=== PATIENT | female | born 1975 | race Caucasian/White ===

== ENCOUNTER 2016-11-30 08:08 | Inpatient (IN) | payer OTHER ==
--- NOTE | 2016-11-30 10:53 | RAD ---
HISTORY: well-being, gestational age by dates of 40 weeks and 3 days COMPARISONS: None TECHNIQUE: Multiple transverse and longitudinal ultrasound images were obtained of the gravid uterus using grayscale, color Doppler, M-Mode Doppler, and spectral Doppler imaging as part of a biophysical profile without nonstress test. FINDINGS: An anatomic evaluation is not included as part of this examination. BIOPHYSICAL PROFILE: Breathing Movement: 2/2 Movement: 2/2 Tone: 2/2 Qualitative Amniotic Fluid Volume: 2/2 Total Biophysical Profile Score: 8/8 FETUS: Number: 1 Presentation: Vertex Gestational age: 40 weeks, 2 days GINA: November 28, 2016. This is concordant with age by dates. Estimated weight: 4673 g +/- 682 g heart rate: 142 bpm. An anatomic evaluation is not included as part of this examination. PLACENTA: Position: Posterior Quantitative amniotic fluid index: 20.1 cm IMPRESSION: 1. SINGLE LIVE INTRAUTERINE GESTATION IN VERTEX PRESENTATION AT 40 WEEKS AND 2 DAYS BY COMPOSITE GESTATIONAL AGE. 2. TOTAL BIOPHYSICAL PROFILE SCORE OF 8/8
[2016-11-30] MEDS ORDERED: Sodium Citrate/Citric Acid* 15 ML UDC PO ONE (13:57)
[2016-11-30] MEDS ORDERED: ceFOXitin 2 GM IVPREMIX* 2 GM/50 ML BAG IVPB ONE (13:57)
[2016-11-30] MEDS ORDERED: Lidocaine 1% MPF* 2 ML VIAL ONE (14:03)
[2016-11-30 14:54] LABS: Hematocrit 37 % (35-47); Mean Corpuscular HGB Conc 32 g/dl (31-36); Mean Corpuscular Hemoglobin 28 pg (27-31); Mean Corpuscular Volume 87 fL (80-97); Mean Platelet Volume 11 um3 (7.4-10.4); Red Blood Count 4.25 10^6/ul (4.0-5.4); Red Cell Distribution Width 14 % (10.5-15); White Blood Count 10.3 10^3/ul (3.5-10.8)
[2016-11-30] MEDS ORDERED: Morphine PF AMP (0.5MG/ML)* 5 MG/10 ML AMP ONE (17:12)
[2016-11-30] MEDS ORDERED: OXYTOCIN* 10 UNITS/ML 1 ML VIAL ONE (17:38)
[2016-11-30] MEDS ORDERED: Naloxone* 0.4 MG/ML 1 ML VIAL IV PRN (17:49)
[2016-11-30] MEDS ORDERED: Ondansetron INJ* 2 MG/ML VIAL IV PRN (17:49)
[2016-11-30] MEDS ORDERED: DiMENhydriNATE IV* 50 MG/ML VIAL IV PUSH PRN (17:49)
[2016-11-30] MEDS ORDERED: fentaNYL* 50 MCG/ML 2 ML VIAL (100 MCG VIAL) ONE (18:00)
[2016-11-30] MEDS ORDERED: Dibucaine 1% 28.35 GM TUBE PR PRN (19:11)
[2016-11-30] MEDS ORDERED: Witch Hazel PAD* JAR TOPICAL PRN (19:11)
[2016-11-30] MEDS ORDERED: Glycerin ADULT SUPP PR PRN (19:11)
[2016-11-30] MEDS: Ibuprofen TAB* 800 MG PO SCH (19:30)
[2016-11-30] MEDS: oxyCODONE/Acetamin 5/325 MG* TAB PO PRN (19:57)
[2016-12-01] MEDS: Simethicone CHEW TAB* 80 MG PO SCH ×5 (01:45→21:09)
[2016-12-01] MEDS: Docusate CAP* 100 MG PO SCH ×4 (01:45→21:09)
[2016-12-01] MEDS: Ibuprofen TAB* 800 MG PO SCH ×3 (02:20→19:35)
[2016-12-01] MEDS: oxyCODONE/Acetamin 5/325 MG* TAB PO PRN ×4 (06:33→22:45)
[2016-12-01 07:02] LABS: Hematocrit 31 % (35-47); Mean Corpuscular HGB Conc 33 g/dl (31-36); Mean Corpuscular Hemoglobin 29 pg (27-31); Mean Corpuscular Volume 88 fL (80-97); Mean Platelet Volume 11 um3 (7.4-10.4); Red Blood Count 3.46 10^6/ul (4.0-5.4); Red Cell Distribution Width 14 % (10.5-15)
[2016-12-01] MEDS ORDERED: Ferrous Gluconate TAB* 324 MG TAB PO SCH (09:00)
[2016-12-01] MEDS ORDERED: oxyCODONE/Acetamin 5/325 MG* TAB PO PRN (09:30)
[2016-12-01] MEDS: Ibuprofen TAB* 600 MG PO SCH ×3 (15:10→21:09)
--- NOTE | 2016-12-01 15:44 | OP ---
DATE OF OPERATION: 11/30/16 - ROOM #[id number] DATE OF : 77 SURGEON: Elizabeth Taylor MD CATALOG SPECIALIST: Ms. Lottie LM ANESTHESIOLOGIST: Dr. Gurinder Beltran ANESTHESIA: Spinal PRE-OP DIAGNOSES: Advanced maternal age at 40 +3 weeks gestation with failed induction and suspected macrosomia. POST-OP DIAGNOSES: Advanced maternal age at 40 +3 weeks gestation with failed induction and macrosomia. OPERATIVE PROCEDURE: Primary low-transverse section. ESTIMATED BLOOD LOSS: 900 cc. IV FLUIDS: 2750 cc lactated Ringer's. URINE OUTPUT: 250 cc. MATERIALS TO LAB: Cord blood. INDICATIONS: The patient is a 41-year-old 1, para 0, who presented today at 40 +3 weeks gestation with initial plan for continued induction. The patient had already been at the hospital for 36 hours last week with no significant cervical change during her induction. This morning after the patient presented to the hospital, a biophysical profile was performed, which returned 1010; however, the estimated weight on the ultrasound was 10 pounds 3 ounces. Considering the significant macrosomia and the patient's previous unsuccessful attempted induction, after extensive discussion, the patient desired to proceed with primary section today. She was extensively counseled regarding her options and consent was signed. FINDINGS: Normal-appearing uterus, fallopian tubes, and ovaries. Delivery is productive of a 10 pounds 5 ounces female infant with Apgars of 8 and 9. Time of delivery was 1755. COMPLICATIONS: None. DESCRIPTION OF PROCEDURE: The risks, benefits, and alternatives were described to the patient and informed consent was obtained. The patient was taken to the operating room with IV running where spinal anesthesia was induced and found to be adequate. The patient was prepped and draped in the normal sterile fashion in the dorsal supine position with leftward tilt. A Pfannenstiel skin incision was made with a scalpel and this was carried down to the underlying fascia sharply. The fascia was then scored in the midline with the scalpel. The incision was extended using Rose scissors. The rectus muscles were dissected off the rectus fascia using blunt and sharp dissection. The rectus muscles were in the midline bluntly. The peritoneum was also entered bluntly. A bladder blade was placed. A bladder flap was created sharply using Metzenbaum scissors. A low transverse uterine incision was made with the scalpel. This was carried down to the amniotic cavity which was productive of clear fluid. The incision was extended with blunt traction. The head was elevated to the level of the incision without difficulty and delivered through the incision. With fundal pressure, the shoulders and body delivered without difficulty. The infant had an excellent tone and cried immediately on delivery. The cord was doubly clamped and cut. The infant was then handed to the awaiting intelligence engineer. Cord blood was collected. The placenta then delivered with manual extraction. The uterus was too large to exteriorize, so it was left in situ and cleared of all clots and debris. The uterine incision was reapproximated using 0 Polysorb in a running-locked fashion. A second layer of imbricating sutures of 0 Polysorb was also placed with good hemostasis. The paracolic gutters were irrigated with saline. The incision was reinspected and noted to be hemostatic. The peritoneum was closed with 3-0 Polysorb in a running fashion. The fascia was closed with 0 Polysorb in a running fashion. Subcutaneous tissues were reapproximated using 3-0 Polysorb in interrupted sutures. The skin was then closed with 4-0 Monocryl in a subcuticular stitch. Mastisol and Steri-Strips were placed over the incision which was then covered with a sterile bandage. The patient tolerated the procedure well. Sponge, lap, and needle counts were correct x2. [id number]/[facility] #: [id number] [facility]
[2016-12-02] MEDS: Ibuprofen TAB* 600 MG PO SCH ×4 (05:37→17:45)
[2016-12-02] MEDS: oxyCODONE/Acetamin 5/325 MG* TAB PO PRN ×2 (05:37→22:26)
[2016-12-02] MEDS: Docusate CAP* 100 MG PO SCH ×3 (09:36→22:25)
[2016-12-02] MEDS: Simethicone CHEW TAB* 80 MG PO SCH ×4 (09:36→22:25)
[2016-12-02] MEDS: Acetaminophen TAB* 325 MG PO PRN ×2 (11:41→17:45)
[2016-12-03] MEDS: Ibuprofen TAB* 600 MG PO SCH ×2 (00:09→07:17)
[2016-12-03] MEDS: Docusate CAP* 100 MG PO SCH (04:49)
[2016-12-03] MEDS: oxyCODONE/Acetamin 5/325 MG* TAB PO PRN (07:17)
[2016-12-03 07:53] VITALS: BP 144/74
[2016-12-03] MEDS: Simethicone CHEW TAB* 80 MG PO SCH (09:39)
--- NOTE | 2016-12-03 10:13 | PTEDU ---
Patient Name: JETT ROACH JETT ROACH selected video: Never Ever Shake a Baby to view on 12/03/2016 at 10:13:30 AM from [facility] [id number]
== END 2016-12-03 12:12 | disposition home or self-care (01) | DRG 766 ==
LOC: MCHOBOUT 08:08 → MCHOB 14:20
PROVIDERS: ADMIT Obstetrics & Gynecology; ATTEND Obstetrics & Gynecology
PROC: 4A1HX4Z Monitoring of Products of Conception, Cardiac Electrical Activity, External Approach (ICD-10-PCS; 2016-11-30)
PROC: 10D00Z1 Extraction of Products of Conception, Low, Open Approach (ICD-10-PCS; principal; 2016-11-30 17:17)
DX: O36.63X0 Maternal care for excessive fetal growth, third trimester, not applicable or unspecified (principal); O99.824 Streptococcus B carrier state complicating childbirth; Z3A.40 40 weeks gestation of pregnancy; Z37.0 Single live birth; O61.0 Failed medical induction of labor
CPT/HCPCS: 36415; 76819; 85025; A9270-GY; J0694; J2590; J3010

== ENCOUNTER 2018-01-05 19:55 | Emergency (ER) | payer OTHER ==
[2018-01-05 20:48] VITALS: BP 145/99
--- NOTE | 2018-01-05 21:12 | UC ---
Throat Pain/Nasal Vinicio HPI - HPI Summary HPI Summary: 42-year-old female presents with a 7 day history of nasal congestion and thick yellow nasal drainage. States she had a mild sore throat at the onset of symptoms which has since resolved. She did have fever as high as 101.5 F for the first 2 days. States her symptoms were improving however yesterday began with worsening of nasal congestion/drainage and started with a nonproductive cough and chest tightness. Denies ear pain or drainage, chest pain, wheezing, abdominal pain, nausea or vomiting. History of asthma as a child. Positive sick contact daughter with similar symptoms - History of Current Complaint Chief Complaint: UCRespiratory Stated Complaint: FLU-LIKE SYMPTOMS Time Seen by Provider: 01/05/18 21:06 Hx Obtained From: Patient Hx Last Menstrual Period: now ?: No Onset/Duration: Gradual Onset, Lasting Days, Worse Since Pain Intensity: 0 Cough: Nonproductive Associated Signs & Symptoms: Positive: Nasal Discharge, Fever. Negative: Dysphagia, Drooling, Wheezing, Hoarseness, Sinus Discomfort, Vomiting, Rash Related History: Seasonal Allergies - Allergies/Home Medications Allergies/Adverse Reactions: Allergies Allergy/AdvReac Type Severity Reaction Status Date / Time No Known Allergies Allergy Verified 01/05/18 20:49 PMH/Surg Hx/FS Hx/Imm Hx - Additional Past Medical History Additional PMH: Noncontributory Previously Healthy: Yes - Surgical History Surgical History: None - Family History Family History: Noncontributory - Social History Occupation: Employed Full-time Lives: With Family Alcohol Use: Occasionally Substance Use Type: None Smoking Status (MU): Never Smoked Tobacco - Immunization History Most Recent Influenza Vaccination: 03/2016 Most Recent Pneumonia Vaccination: None Review of Systems Constitutional: Fever, Fatigue Skin: Negative ENT: Sore Throat, Nasal Discharge, Sinus Congestion Respiratory: Cough Cardiovascular: Negative Gastrointestinal: Negative Is Patient Immunocompromised?: No All Other Systems Reviewed And Are Negative: Yes Physical Exam Triage Information Reviewed: Yes Appearance: Well-Appearing, No Pain Distress, Well-Nourished Vital Signs: Initial Vital Signs Temp 98.4 F 01/05/18 20:45 Pulse 90 01/05/18 20:45 Resp 12 01/05/18 20:45 BP 145/99 01/05/18 20:45 Pulse Ox 98 01/05/18 20:45 Vital Signs Reviewed: Yes Eyes: Positive: Conjunctiva Clear. Negative: Discharge ENT: Positive: Pharyngeal erythema - Mild with postnasal drip., Nasal congestion , Nasal drainage, TMs normal, Uvula midline. Negative: Tonsillar swelling, Tonsillar exudate, Trismus, Muffled voice, Hoarse voice, Sinus tenderness Neck: Positive: Supple, Nontender, No Lymphadenopathy Respiratory: Positive: Chest non-tender, Lungs clear, No respiratory distress, Rhonchi - Right middle lobe that cleared with cough otherwise normal.. Negative : Wheezing Cardiovascular: Positive: RRR, No Murmur Neurological: Positive: Alert Skin Exam: Normal Throat Pain/Nasal Course/Dx - Course Course Of Treatment: 42-year-old female with 7 day history of URI symptoms that were initially improving however 2 days ago again to worsen again and now has a nonproductive cough with some chest tightness. Symptoms likely pecan is a viral syndrome however based on her history of improving symptoms followed by worsening of symptoms of concern for a possible suprainfection of bacterial origin. We'll start her on doxycycline 100 mg twice a day for 7 days and continue symptomatic treatment. She is to follow-up with her primary care provider if no improvement or sick immediate medical attention if her symptoms worsen. Patient verbalizes understanding and agrees with plan of care. - Differential Dx/Diagnosis Differential Diagnosis/HQI/PQRI: Sinusitis, URI Provider Diagnoses: Upper respiratory infection, elevated blood pressure reading Discharge - Sign-Out/Discharge Documenting (check all that apply): Patient Departure All imaging exams completed and their final reports reviewed: No Studies - Discharge Plan Condition: Stable Disposition: HOME Prescriptions: Benzonatate CAP* [Tessalon 100 MG CAP*] 100 mg PO TID PRN #30 cap PRN Reason: Cough Doxycycline Hyclate 100 mg PO BID #14 tablet Patient Education Materials: Upper Respiratory Infection (ED) Referrals: Hussein Sofia MD [Primary Care Provider] - As Soon As Possible (Call for appointment to recheck blood pressure within next 4 weeks.) Additional Instructions: Start doxycycline 1 tab twice a day for 7 days. Saline rinses have been shown to be very beneficial for treating symptoms of upper respiratory infections. I would recommend doing these at least twice a day. Use [id number] Sudafed according to directions to help with the your congestion. May use Tessalon Perles 1 cap every 8 hours as needed for cough. [id number] acetaminophen (Tylenol) or ibuprofen (Advil, Motrin) according to directions as needed for aches pains or fever. Follow-up with your primary care provider in 7 days if your symptoms do not improve. Seek immediate medical attention if you have persistent fever greater than 100.5 F despite taking acetaminophen or ibuprofen, have any chest pain, shortness of breath, or worsening of symptoms. Your blood pressure in the clinic today was slightly elevated. He should make an appointment to see your primary care provider within the next 4 weeks to have this rechecked. - Billing Disposition and Condition Condition: STABLE Disposition: Home
[2018-01-05] MEDS ORDERED: DOXYcycline CAP(*) 100 MG PO ONE (21:26)
[2018-01-05] MEDS ORDERED: Benzonatate CAP* 100 MG PO ONE (21:38)
== END 2018-01-05 21:48 | disposition home or self-care (01) ==
LOC: UCEAST 19:55
DX: J06.9 Acute upper respiratory infection, unspecified (principal); R03.0 Elevated blood-pressure reading, without diagnosis of hypertension; R07.89 Other chest pain
CPT/HCPCS: 99212; A9270-GY; G0463